=== PATIENT | female | born 1970 | race Asian ===

== ENCOUNTER → 2023-11-06 17:05 | Outpatient (REF) | payer OTHER, SELFPAY | LOC: WDC 17:05 | PROVIDERS: ATTENDING PHYSICIAN Obstetrics & Gynecology; FAMILY PHYSICIAN Family Medicine | DX: Z12.31 Encounter for screening mammogram for malignant neoplasm of breast (principal) | CPT/HCPCS: 77063; 77067 ==

== ENCOUNTER → 2023-11-25 07:18 | Outpatient (REF) | payer OTHER, SELFPAY | LOC: RCS 07:18 | PROVIDERS: ATTENDING PHYSICIAN Internal Medicine Cardiovascular Disease; FAMILY PHYSICIAN Family Medicine | DX: R00.2 Palpitations (principal) | CPT/HCPCS: 93306 ==

== ENCOUNTER 2024-01-31 20:44 | Emergency (ER) | payer OTHER, SELFPAY ==
[2024-01-31 20:46] VITALS: BP 168/82; BMI 26.6
[2024-01-31 21:01] LABS: Urine Albumin Trace (Neg - Trace); Urine Bilirubin Negative (Negative); Urine Character Clear (Clear); Urine Color Pink; Urine Glucose Negative (Negative); Urine Ketone Negative (Negative); Urine Leukocyte 1+ (Negative); Urine Nitrite Negative (Negative); Urine Occult Blood 4+ (Negative); Urine Urobilinogen Negative (Neg - 1+)
[2024-01-31 21:10] LABS: Urine Red Blood Cell 50-60 /HPF (0-2)
[2024-01-31 21:11] LABS: Urine Bacteria Few (Negative)
[2024-01-31 23:55] LABS: % Basophils 0.2 % (0-2); % Eosinophils 1.4 % (0-6); % Immature Granulocytes 0.4 % (0-0.5); Absolute Eosinophils 0.1 10^3/uL (0-0.7); Absolute Lymphocytes 1.4 10^3/uL (1.2-3.4); Absolute Monocytes 0.4 10^3/uL (0.1-0.6); Absolute Neutrophils 3.6 10^3/uL (1.4-6.5); Hemoglobin 12.8 g/dL (12.0-16.0); Mean Corp Hgb Conc. 35.6 g/dL (33.0-37.0); Mean Corpuscular Hgb 29.5 pg (27.0-31.0); Mean Corpuscular Volume 82.9 fL (81.0-99.0); Mean Platelet Volume 8.7 fL (7.4-10.4); Nucleated Red Blood Cells % 0 %; Platelet Count 163 10^3/uL (130-400); Red Blood Cell Count 4.34 10^6/uL (4.20-5.40); Red Cell Dist. Width 12.2 % (11.5-14.5); White Blood Cell Count 5.5 10^3/uL (4.8-10.8)
--- NOTE | 2024-02-01 00:08 | ED.GENMED ---
History of Present Illness
General
Chief Complaint: Urinary Symptoms
Source: patient
Exam Limitations: none
Time Seen by Provider: 01/31/24 22:33
Nursing documentation reviewed up to this point in time: agreed with
History of Present Illness
History of Present Illness:
53-year-old female presenting to the emergency department today with concerns of pink discoloration of urine also had some left-sided flank pain intermittently. Also had some itchiness when urinating. Denies any fever chest pain shortness of
breath or vaginal symptoms.
Review of Systems
Review of Systems
Allergies reviewed?: Yes
All Other Systems: ROS reviewed and negative except as documented in HPI and ROS
Phy Exam
Physical Exam
Physical Exam:
GENERAL: Alert , in no apparent distress
EYE: pupils equal and reactive
NECK: Supple, no significant adenopathy.
ENT: o/p clr, mmm.
CARDIAC: Regular rate and rhythm .
LUNGS: Clear breath sounds bilaterally, no acute respiratory distress, no wheezes/rales/rhonchi
ABDOMEN: Soft, without focal tenderness, no r/g, no cvat
NEUROLOGICAL: Alert and oriented, no focal neuro deficits
SKIN: Warm and dry, skin intact.
MUSCULOSKELETAL: No edema, well perfused.
PSYCH: Normal and appropriate interaction.
Course
Orders/Labs/Results
Orders:
Orders
01/31/24 20:55
Urinalysis Reflex To Culture Urgent
Date Specimen was Collected: 01/31/24
Time Specimen was Collected: 20:48
Urine Microscopic Reflex Cult Urgent
Urine Culture Urgent
SIOMARA Source: U
Specimen Description:
Date Specimen was Collected: 01/31/24
Time Specimen was Collected: 20:48
01/31/24 23:43
CBC/With Diff [Complete Blood Count/With Diff] Urgent
CMP [Comprehensive Metabolic Panel] Urgent
02/01/24 00:03
CT Abd/pel Without Iv Or Oral Urgent
Reason For Exam: left flank pain hematuria
02/01/24 01:30
Cephalexin Monohydrate [Keflex] 500 mg PO NOW STA
Abnormal Lab Results
01/31/24 01/31/24
20:55 23:43
Hct 36.0 L %
(37.0-47.0)
BUN 21 H mg/dl
(7-17)
Glucose 108 H mg/dl
(70-99)
Ur Occult Blood Reflex 4+ A
(Negative)
Leukocyte Esterase Rfl 1+ A
(Negative)
Urine RBC 50-60 A /HPF
(0-2)
Urine Bacteria (Reflex) Few A
(Negative)
01/31/24 23:43
01/31/24 23:43
Vital Signs
Initial and Last Documented VS:
Initial Vital Signs
Temp Pulse Resp BP Pulse Ox
98.2 F 85 14 168/82 99
01/31/24 20:46 01/31/24 20:46 01/31/24 20:46 01/31/24 20:46 01/31/24 20:46
Last Documented Vital Signs
Temp Pulse Resp BP Pulse Ox
98.2 F 85 14 168/82 99
01/31/24 20:46 01/31/24 20:46 01/31/24 20:46 01/31/24 20:46 01/31/24 20:46
MDM/Problems Addressed
MDM/Problems Addressed:
53-year-old female presenting to the emergency department with concerns of pink discoloration of her urine throughout the day today. Upon arrival blood pressure elevated otherwise vital signs are normal. Patient no distress normal hemoglobin here
on labs urinalysis showing mainly red blood cells not convincing for urinary tract infection without significant white blood cells. CT scan was obtained considering the patient's red blood cells to ensure there is no kidney stone. CT scan was
normal. Patient possibly with urinary tract infection with description of symptoms and some degree of white blood cells. Patient was started on antibiotic and will otherwise follow-up closely with the primary care doctor for reassessment. Return
precautions given.
*Critical Care Note
Total Time (30-74mins, 75-104mins- exclusive of procedures): Not Applicable
ED Attending Note
-
Portions of this chart may have been created with voice recognition software.� Occasional wrong word or��sound alike� substitutions may have occurred due to the inherent limitations of voice recognition software.
Discharge Plan
Departure
Patient Disposition: Home (Routine Discharge)
Date of Disposition: 02/01/24
Time of Disposition: 01:30
Patient with high blood pressure during this ER visit?: No
Condition: Good
Covid-19: Not Applicable
Discharge Problem:
Cystitis
Instructions: Urinary Tract Infection, Adult (DC)
Prescriptions:
New
cephalexin 500 mg capsule
500 mg PO TID 5 Days Qty: 15 0RF
No Action
naproxen [Naprosyn] 250 mg Tablet
250 mg PO BID
triamcinolone acetonide 0.5 % ointment
1 applic topical BID Qty: 15 0RF
cephalexin 500 mg capsule
500 mg PO QID 3 Days Qty: 12 0RF
Referrals:
Rianna Lezama MD [Family Provider] -
Activity Restrictions/Additional Instructions:
You came to the emergency department today with concerns of urinary symptoms. You are treated for potential urinary tract infection. Please take the medication 3 times daily for the next 5 days and follow-up close with the primary care doctor for
reassessment. Return to the emergency department for any worsening, new or concerning symptoms
Interventions
Interventions:
*Risk Screen - Suicide Last Done: 01/31/24 20:46
*General Assessment Last Done: 01/31/24 21:24
*Neglect/Abuse Screening Last Done: 01/31/24 20:46
*ED COVID-19 Vaccine History Last Done: 01/31/24 21:24
ED-Female Genitourinary Assessment Last Done: 01/31/24 21:24
Discharge Date and Time
Print Language: GREENLANDIC
[2024-02-01 00:12] LABS: ALT (SGPT) 24 U/L (0-35); AST (SGOT) 28 U/L (14-36); Alkaline Phosphatase 77 U/L (38-126); Blood Urea Nitrogen 21 mg/dl (7-17); Calcium 9.1 mg/dl (8.4-10.2); Carbon Dioxide 27 mmol/L (22-30); Chloride 105 mmol/L (98-107); Estimated Creatinine Clearance 79 ml/min; Glucose 108 mg/dl (70-99); Sodium 138 mmol/L (135-145); Total Bilirubin 0.4 mg/dl (0.2-1.3); Total Protein 6.9 g/dl (6.3-8.2); eGFR > 60.00
[2024-02-01] MEDS: KEFLEX 500 MG PO (01:33)
== END 2024-02-01 01:46 | disposition home or self-care (01) ==
LOC: EMR 20:44
PROVIDERS: Physician Assistant; Student in an Organized Health Care Education/Training Program; EMERGENCY PHYSICIAN Student in an Organized Health Care Education/Training Program; FAMILY PHYSICIAN Family Medicine
DX: N30.91 Cystitis, unspecified with hematuria (principal)
CPT/HCPCS: 99284; 74176; 80053; 81003; 81015; 85025; 87086

== ENCOUNTER → 2024-02-19 10:50 | Outpatient (REF) | payer OTHER, SELFPAY | LOC: RAD 10:50 | PROVIDERS: ATTENDING PHYSICIAN Physician Assistant; FAMILY PHYSICIAN Nurse Practitioner Acute Care | DX: M25.512 Pain in left shoulder (principal) | CPT/HCPCS: 73030 ==

== ENCOUNTER 2024-10-12 18:00 | Emergency (ER) | payer OTHER, SELFPAY ==
[2024-10-12 18:10] VITALS: BP 106/74
[2024-10-12 18:31] LABS: Urine Albumin 2+ (Neg - Trace); Urine Bilirubin Negative (Negative); Urine Character Clear (Clear); Urine Glucose Negative (Negative); Urine Ketone Negative (Negative); Urine Leukocyte 2+ (Negative); Urine Nitrite Negative (Negative); Urine Occult Blood 4+ (Negative); Urine Urobilinogen Negative (Neg - 1+)
[2024-10-12 18:32] LABS: Urine Color Pink
[2024-10-12 18:40] LABS: Hematocrit 39.2 % (37.0-47.0); Hemoglobin 13.4 g/dL (12.0-16.0); Mean Corp Hgb Conc. 34.2 g/dL (33.0-37.0); Mean Corpuscular Hgb 29.2 pg (27.0-31.0); Mean Corpuscular Volume 85.4 fL (81.0-99.0); Mean Platelet Volume 8.9 fL (7.4-10.4); Platelet Count 149 10^3/uL (130-400); Red Blood Cell Count 4.59 10^6/uL (4.20-5.40); Red Cell Dist. Width 12.1 % (11.5-14.5); White Blood Cell Count 5.1 10^3/uL (4.8-10.8)
[2024-10-12 18:43] LABS: Urine Bacteria Moderate (Negative); Urine Red Blood Cell 50-60 /HPF (0-2)
[2024-10-12 18:48] LABS: ALT (SGPT) 29 U/L (0-35); AST (SGOT) 29 U/L (14-36); Albumin 4.4 g/dl (3.5-5.0); Alkaline Phosphatase 73 U/L (38-126); Blood Urea Nitrogen 16 mg/dl (7-17); Calcium 8.9 mg/dl (8.4-10.2); Carbon Dioxide 25 mmol/L (22-30); Chloride 103 mmol/L (98-107); Glucose 110 mg/dl (70-99); Potassium 4.1 mmol/L (3.5-5.1); Sodium 137 mmol/L (135-145); Total Bilirubin 0.8 mg/dl (0.2-1.3); Total Protein 7.6 g/dl (6.3-8.2); eGFR > 60.00
[2024-10-12 19:02] LABS: % Basophils 0.2 % (0-2); % Eosinophils 0.6 % (0-6); % Immature Granulocytes 0.2 % (0-0.5); % Lymphocytes 28.7 % (20.5-51.1); % Monocytes 8.7 % (1.7-9.3); % Neutrophils 61.6 % (42.2-75.2); Absolute Lymphocytes 1.5 10^3/uL (1.2-3.4); Absolute Monocytes 0.4 10^3/uL (0.1-0.6); Absolute Neutrophils 3.1 10^3/uL (1.4-6.5); Nucleated Red Blood Cells % 0 %
--- NOTE | 2024-10-12 20:37 | ED.GENMED ---
History of Present Illness
General
Chief Complaint: Urinary Symptoms
Source: patient
Exam Limitations: none
Time Seen by Provider: 10/12/24 20:25
Nursing documentation reviewed up to this point in time: agreed with
History of Present Illness
History of Present Illness:
Patient to ED with complaint of hematuria. Symptoms started today. States yesterday she felt fatigued. Developed diarrhea. No diarrhea today. Denies any abdominal or back pain. Brought self to ED for eval. Denies fever/chills, back pain
Review of Systems
Review of Systems
Allergies reviewed?: Yes
All Other Systems: ROS reviewed and negative except as documented in HPI and ROS
Constitutional: Reports no symptoms
EENT: Reports no symptoms
Respiratory: Reports no symptoms
Cardiac: Reports no symptoms
ABD/GI: Reports no symptoms
: Reports bleeding
Musculoskeletal: Reports no symptoms
Skin: Reports no symptoms
Neurological: Reports no symptoms
Psychiatric: Reports no symptoms
Phy Exam
General Physical Exam
General Presentation: well appearing and no apparent distress
General age: appears stated age
General Skin: warm and dry
General Habitus: normal
General Mental: alert
Gastrointestinal Exam
Gastrointestinal Exam: normal bowel sounds, non tender, soft, no organomegaly, no pulsatile mass, non distended and no cva tenderness
Musculoskeletal Exam
Musculoskeletal Exam: full ROM and neuro vasc intact
Skin Exam
Skin Exam: normal color, warm/dry and no rash
Psychiatric Exam
Psychiatric Exam: normal mood/affect
Course
Orders/Labs/Results
Orders:
Orders
10/12/24 18:17
CBC/With Diff [Complete Blood Count/With Diff] Urgent
CMP [Comprehensive Metabolic Panel] Urgent
10/12/24 18:20
Urinalysis Reflex To Culture Urgent
Date Specimen was Collected: 10/12/24
Time Specimen was Collected: 18:01
Urine Microscopic Reflex Cult Urgent
Urine Culture Urgent
SIOMARA Source: U
Specimen Description:
Date Specimen was Collected: 10/12/24
Time Specimen was Collected: 18:01
10/12/24 20:34
Ciprofloxacin HCl [Cipro] 250 mg PO NOW STA
Abnormal Lab Results
10/12/24 10/12/24
18:17 18:20
Glucose 110 H mg/dl
(70-99)
Ur Occult Blood Reflex 4+ A
(Negative)
Leukocyte Esterase Rfl 2+ A
(Negative)
Urine RBC 50-60 A /HPF
(0-2)
Urine WBC (Reflex) 11-15 A /HPF
(0-5)
Urine Bacteria (Reflex) Moderate A
(Negative)
Urine Albumin (Reflex) 2+ A
(Neg - Trace)
10/12/24 18:17
10/12/24 18:17
Vital Signs
Initial and Last Documented VS:
Initial Vital Signs
Temp Pulse Resp BP Pulse Ox
98.7 F 92 15 106/74 98
10/12/24 18:10 10/12/24 18:10 10/12/24 18:10 10/12/24 18:10 10/12/24 18:10
Last Documented Vital Signs
Temp Pulse Resp BP Pulse Ox
98.7 F 92 15 106/74 98
10/12/24 18:10 10/12/24 18:10 10/12/24 18:10 10/12/24 18:10 10/12/24 18:10
*Critical Care Note
Total Time (30-74mins, 75-104mins- exclusive of procedures): Not Applicable
Update Note
Update Note:
Patient to ED with omplaint of blood in urine. States she had diarrhea yesterday. No burning with urination. Denies any abdominal pain, back pain, flank pain. No fever/chills. Labs reviewed. UA reflexting UTI. Placed on Cipro in dept. Will
continue bid pending culture results. Shee was ginve instructions on s/s to return to ED and she is agreeable to plan.
ED Attending Note
-
Portions of this chart may have been created with voice recognition software.� Occasional wrong word or��sound alike� substitutions may have occurred due to the inherent limitations of voice recognition software.
Discharge Plan
Departure
Patient Disposition: Home (Routine Discharge)
Date of Disposition: 10/12/24
Time of Disposition: 20:34
Patient with high blood pressure during this ER visit?: No
Condition: Good
Covid-19: Not Applicable
Discharge Problem:
UTI (urinary tract infection)
Instructions: Urinary Tract Infection, Adult (DC)
Prescriptions:
New
ciprofloxacin HCl [Cipro] 250 mg tablet
250 mg PO BID Qty: 10 0RF
No Action
naproxen [Naprosyn] 250 mg Tablet
250 mg PO BID
triamcinolone acetonide 0.5 % ointment
1 applic topical BID Qty: 15 0RF
cephalexin 500 mg capsule
500 mg PO QID 3 Days Qty: 12 0RF
cephalexin 500 mg capsule
500 mg PO TID 5 Days Qty: 15 0RF
Activity Restrictions/Additional Instructions:
Follow up with your family doctor. Return to the emergency department immediately for any changes in/worsening of your symptoms
Interventions
Interventions:
*Risk Screen - Suicide Last Done: 10/12/24 18:10
*General Assessment Last Done: 10/12/24 18:10
*Neglect/Abuse Screening Last Done: 10/12/24 18:10
*ED COVID-19 Vaccine History Last Done: 10/12/24 18:10
Discharge Date and Time
Print Language: SCOTTISH
[2024-10-12] MEDS: CIPRO 250 MG PO (21:23)
== END 2024-10-12 21:29 | disposition home or self-care (01) ==
LOC: EMR 18:00
PROVIDERS: Emergency Medicine; EMERGENCY PHYSICIAN Student in an Organized Health Care Education/Training Program; FAMILY PHYSICIAN Family Medicine
DX: N39.0 Urinary tract infection, site not specified (principal)
CPT/HCPCS: 99283; 80053; 81003; 81015; 85025; 87086

== ENCOUNTER → 2025-01-14 13:08 | Outpatient (REF) | payer OTHER, SELFPAY | LOC: RAD 13:08 | PROVIDERS: ATTENDING PHYSICIAN Family Medicine | DX: M54.16 Radiculopathy, lumbar region (principal); M54.12 Radiculopathy, cervical region | CPT/HCPCS: 72052; 72110 ==

== ENCOUNTER → 2025-01-20 19:42 | Outpatient (REF) | payer OTHER, SELFPAY | LOC: WDC 19:42 | PROVIDERS: ATTENDING PHYSICIAN Family Medicine | DX: Z12.31 Encounter for screening mammogram for malignant neoplasm of breast (principal) | CPT/HCPCS: 77063; 77067 ==

== ENCOUNTER → 2025-05-12 10:59 | Outpatient (REF) | payer OTHER, SELFPAY | LOC: WDC 10:59 | PROVIDERS: ATTENDING PHYSICIAN Family Medicine | DX: R92.2 Inconclusive mammogram (principal) | CPT/HCPCS: 76641 ==